=== PATIENT | female | born 1975 | race Caucasian/White ===

== ENCOUNTER 2020-06-11 18:11 | Emergency (ER) | payer OTHER ==
[~2020-06-11] VITALS: Ht 177.8 cm; Wt 102.1 kg
[2020-06-11] MEDS ORDERED: LANTUS SOL100 UNIT/1 (19:09)
[2020-06-11] MEDS ORDERED: TRIAMCINOLONE A15 GM TOP (19:09)
[2020-06-11] MEDS ORDERED: HUMALOG KW100 UNIT/1 (19:09)
[2020-06-11] MEDS ORDERED: LOSARTAN POTAS100 MG PO (19:10)
[2020-06-11] MEDS ORDERED: PREDNISONE 20 M20 M1 PO (19:13)
[2020-06-11 19:33] VITALS: BP 145/86
== END 2020-06-11 19:34 | disposition home or self-care (01) ==
LOC: ER 18:11
DX: L23.9 Allergic contact dermatitis, unspecified cause (principal); E11.9 Type 2 diabetes mellitus without complications; I10 Essential (primary) hypertension; Z79.4 Long term (current) use of insulin; Z79.899 Other long term (current) drug therapy; Z88.2 Allergy status to sulfonamides; Z88.5 Allergy status to narcotic agent; Z88.8 Allergy status to other drugs, medicaments and biological substances